=== PATIENT | female | born 1955 | race Two or more races ===

== ENCOUNTER 2024-04-28 07:08 | Inpatient (IN) | payer MEDICARE, OTHER ==
[~2024-04-28] VITALS: Ht 162.6 cm; Wt 70.3 kg
[2024-04-28] MEDS ORDERED: ACETAMINOPHEN 650 MG/SUPP.RECT RC ONE (07:26)
[2024-04-28] MEDS: VANCOMYCIN 1 GM in IV D5W 250 ML IV ONE (07:30)
[2024-04-28 07:37] LABS: BASOPHILS % (AUTO) 0.2 % (0.0-2.0); HEMATOCRIT 32 % (33-45); HEMOGLOBIN 10.3 g/dL (11.5-14.8); LYMPHOCYTES # (AUTO) 1.7 K/uL (0.8-4.8); LYMPHOCYTES % (AUTO) 26.9 % (20.0-44.0); MEAN CORPUSCULAR HEMOGLOBIN 25 PG (26.0-33.0); MEAN CORPUSCULAR HGB CONC 32 g/dl (31.0-36.0); MEAN CORPUSCULAR VOLUME 77 fL (82-100); MONOCYTES # (AUTO) 0.6 K/uL (0.1-1.30); MONOCYTES % (AUTO) 9.9 % (2.0-12.0); NEUTROPHILS # (AUTO) 4.1 K/uL (1.8-8.9); PLATELET COUNT (AUTO) 161 K/uL (150-450); RED BLOOD CELL COUNT(AUTO) 4.19 MIL/uL (4.0-5.2); RED CELL DISTRIBUTION WIDTH 18.2 % (11.5-15.0); WHITE BLOOD COUNT (AUTO) 6.5 K/uL (4.3-11.0)
[2024-04-28] MEDS: ACETAMINOPHEN 650 MG/SUPP.RECT RC ONE (07:43)
[2024-04-28] MEDS: CEFEPIME 1 GM in IV D5W 50 ML IV ONE (07:43)
[2024-04-28 07:49] LABS: INR 1.09 (0.91-1.10); PARTIAL THROMBOPLASTIN TIME 31.1 SEC (24.3-34.3); PROTHROMBIN TIME 11.5 SECS (9.2-11.1)
[2024-04-28 07:55] LABS: LACTIC ACID 1.3 mmol/L (0.4-2.0)
[2024-04-28 08:00] LABS: CALCIUM, SERUM 7.9 mg/dL (8.5-10.1); CARBON DIOXIDE 26 mmol/L (21-32); CHLORIDE 106 mmol/L (98-107); CREATININE 1.2 mg/dL (0.6-1.3); GLUCOSE 205 mg/dL (74-106); POTASSIUM 4.7 mmol/L (3.5-5.1); SODIUM SERUM 139 mmol/L (136-145); UREA NITROGEN, BLOOD 26 mg/dL (7-18)
[2024-04-28 08:04] LABS: ALANINE AMINOTRANSFERASE 8 U/L (12-78); ALBUMIN 1.5 g/dL (3.4-5.0); ALKALINE PHOSPHATASE 71 U/L (46-116); ASPARTATE AMINOTRANSFERASE 16 U/L (15-37); BILIRUBIN,DIRECT 0.1 mg/dL (0.0-0.2); BILIRUBIN,TOTAL 0.3 mg/dL (0.2-1.0); TOTAL PROTEIN, SERUM 6.2 g/dL (6.4-8.2)
[2024-04-28] MEDS: IV NS 0.9% 1,000 ML BAG IV ONE (08:09)
[2024-04-28] MEDS ORDERED: BUSP7.5T7 PO (09:22)
[2024-04-28] MEDS ORDERED: FOLI0.4T6 PO (09:22)
[2024-04-28] MEDS ORDERED: MAGN400O6 PO (09:22)
[2024-04-28] MEDS ORDERED: DIVA125C5 PO (09:22)
[2024-04-28] MEDS ORDERED: MAG30ORA PO (09:22)
[2024-04-28] MEDS ORDERED: FERR325T23 PO (09:22)
[2024-04-28] MEDS ORDERED: CLON0.5T4 PO (09:22)
[2024-04-28] MEDS ORDERED: NA P133E RC (09:22)
[2024-04-28] MEDS ORDERED: METF-442 PO (09:22)
[2024-04-28] MEDS ORDERED: AMIN30LI25 PO (09:22)
[2024-04-28] MEDS ORDERED: GLIP5TAB13 PO (09:22)
[2024-04-28] MEDS ORDERED: HYDR-4076 PO (09:22)
[2024-04-28] MEDS ORDERED: ACET325T53 PO (09:22)
[2024-04-28] MEDS ORDERED: MELA3TAB41 PO (09:22)
[2024-04-28] MEDS ORDERED: CYAN-51 PO (09:22)
[2024-04-28] MEDS ORDERED: CALC500T53 PO (09:22)
[2024-04-28] MEDS ORDERED: QUET25TA PO (09:22)
[2024-04-28] MEDS ORDERED: PIOG30TA10 PO (09:22)
[2024-04-28] MEDS ORDERED: DEXT38GE12 PO (09:23)
[2024-04-28] MEDS ORDERED: TRAZ-182 PO (09:23)
[2024-04-28] MEDS ORDERED: OLAN15TA3 PO (09:23)
[2024-04-28] MEDS ORDERED: GLUC1KIT IM (09:23)
[2024-04-28] MEDS ORDERED: ACET-73 PO (09:23)
[2024-04-28] MEDS ORDERED: OLAN7.5T3 PO (09:23)
[2024-04-28] MEDS ORDERED: TRAM50TA2 PO (09:23)
[2024-04-28] MEDS ORDERED: HONE44PA TP (09:27)
[2024-04-28] MEDS ORDERED: POVI37802 TP (09:27)
[2024-04-28 09:38] LABS: APPEARANCE,URINE SLIGHTLY CLOUDY (CLEAR); BILIRUBIN,URINE NEGATIVE (NEGATIVE); BLOOD, URINE TRACE-INTA Ery/uL (NEGATIVE); COLOR,URINE YELLOW (YELLOW); KETONES,URINE NEGATIVE (NEGATIVE); LEUKOCYTE ESTERASE ,URINE 1+ (NEGATIVE); NITRITE, URINE NEGATIVE (NEGATIVE); PROTEIN,URINE NEGATIVE (NEGATIVE); UGLUCOSE 1+ mg/dL (NEGATIVE); UROBILINOGEN,URINE 0.2 EU/dL (0.2)
[2024-04-28 09:57] LABS: ADD URINE CULTURE YES; BACTERIA,URINE Rare /HPF (None Seen); SQUAMOUS EPITHELIAL CELL,UR Few /HPF (None Seen); WBC,URINE 21-50 /HPF (0-3)
[2024-04-28] MEDS ORDERED: DEXTROSE 50%-WATER 50 ML DISP.SYRIN IV PRN (11:00)
[2024-04-28] MEDS ORDERED: GLUTOSE 15 G GEL..GM. PO SCH (11:00)
[2024-04-28] MEDS ORDERED: ONDANSETRON HCL/PF 4 MG/2 ML VIAL IVP PRN (11:00)
[2024-04-28] MEDS: BLOOD SUGAR DIAGNOSTIC 1 EACH STRIP IN SCH (11:43)
[2024-04-28] MEDS: IV NS 0.9% 1,000 ML IV PRN (11:43)
[2024-04-28] MEDS: CEFTRIAXONE 1 G in IV D5W 50 ML IV SCH (11:51)
[2024-04-28 12:00] VITALS: BP 140/75; TEMP 98.6; O2SAT 96
[2024-04-28] MEDS: DIVALPROEX SODIUM 125 MG CAP.SPRINK PO SCH (12:19)
[2024-04-28] MEDS: clonazePAM 0.5 MG TABLET PO SCH (12:19)
[2024-04-28] MEDS: busPIRone 5 MG TABLET PO SCH (12:19)
[2024-04-28] MEDS: PROSOURCE / PROSTAT (PYXIS) 30 ML UDC PO SCH (12:20)
[2024-04-28] MEDS: ENOXAPARIN SODIUM 40 MG/0.4 ML DISP.SYRIN SQ SCH (13:24)
[2024-04-28 16:00] VITALS: BP 119/54; TEMP 98.1; O2SAT 96
[2024-04-28] MEDS: CALCIUM CARBONATE (1250) 500 MG TABLET PO SCH (17:29)
[2024-04-28 20:00] VITALS: BP 128/69; TEMP 98.8; O2SAT 94; O2SAT 96
[2024-04-28] MEDS: INSULIN REGULAR, HUMAN 100 UNIT/ML 3 ML VIAL SQ PRN (21:07)
[2024-04-28] MEDS: OLANZAPINE 10 MG TABLET PO SCH (21:11)
[2024-04-29] VITALS (7 sets, daily range): BP systolic 109–151; BP diastolic 55–94; TEMP 98.1–99.3; O2SAT 94–99
[2024-04-29] MEDS: FOLIC ACID 1 MG TABLET PO SCH (08:24)
[2024-04-29] MEDS: CYANOCOBALAMIN 500 MCG TABLET PO SCH (08:24)
[2024-04-29] MEDS: OLANZAPINE 5 MG TABLET PO SCH (08:24)
[2024-04-29] MEDS: FERROUS SULFATE (325 MG) 325 MG/TAB TABLET PO SCH (08:25)
[2024-04-29 13:35] LABS: CALCIUM, SERUM 7.8 mg/dL (8.5-10.1); CREATININE 0.5 mg/dL (0.6-1.3); PHOSPHORUS 2.4 mg/dL (2.5-4.9); POTASSIUM 3.7 mmol/L (3.5-5.1)
[2024-04-29 13:37] LABS: BASOPHILS % (AUTO) 0.3 % (0.0-2.0); EOSINOPHILS % (AUTO) 0.2 % (0.0-6.0); HEMATOCRIT 30 % (33-45); HEMOGLOBIN 9.3 g/dL (11.5-14.8); LYMPHOCYTES # (AUTO) 1.7 K/uL (0.8-4.8); LYMPHOCYTES % (AUTO) 42.2 % (20.0-44.0); MEAN CORPUSCULAR HEMOGLOBIN 24 PG (26.0-33.0); MEAN CORPUSCULAR HGB CONC 31 g/dl (31.0-36.0); MEAN CORPUSCULAR VOLUME 78 fL (82-100); MONOCYTES # (AUTO) 0.4 K/uL (0.1-1.30); MONOCYTES % (AUTO) 8.7 % (2.0-12.0); NEUTROPHILS % (AUTO) 48.6 % (43.0-81.0); PLATELET COUNT (AUTO) 124 K/uL (150-450); RED BLOOD CELL COUNT(AUTO) 3.82 MIL/uL (4.0-5.2); RED CELL DISTRIBUTION WIDTH 17.6 % (11.5-15.0); WHITE BLOOD COUNT (AUTO) 4.1 K/uL (4.3-11.0)
[2024-04-29] MEDS: K PHOS NEUTRAL 250 MG TABLET PO ONE (16:25)
[2024-04-30] VITALS: BP 152/70; TEMP 98.3; O2SAT 94
[2024-04-30 04:00] VITALS: BP 138/90; TEMP 98.1; O2SAT 95
[2024-04-30 06:51] LABS: CALCIUM, SERUM 7.9 mg/dL (8.5-10.1); CREATININE 0.5 mg/dL (0.6-1.3); PHOSPHORUS 2.5 mg/dL (2.5-4.9); POTASSIUM 3.8 mmol/L (3.5-5.1)
[2024-04-30 08:00] VITALS: BP 137/83; TEMP 99.1; O2SAT 91; O2SAT 95
[2024-04-30 16:00] VITALS: BP 135/84; TEMP 98.1; O2SAT 94
[2024-04-30] MEDS: GLUCERNA SHAKE 237 ML CAN PO SCH (16:53)
[2024-04-30 18:00] VITALS: BP 135/84; TEMP 98.1; O2SAT 90
[2024-04-30 20:00] VITALS: BP 158/75; TEMP 100.4; O2SAT 95
[2024-04-30] MEDS: ACETAMINOPHEN 325 MG TABLET PO PRN (21:08)
[2024-05-01 04:00] VITALS: BP 133/79; TEMP 98.4; O2SAT 95
[2024-05-01 06:59] LABS: CALCIUM, SERUM 8.3 mg/dL (8.5-10.1); CREATININE 0.5 mg/dL (0.6-1.3); POTASSIUM 3.2 mmol/L (3.5-5.1)
[2024-05-01 08:00] VITALS: BP 141/82; TEMP 97.3; O2SAT 93
[2024-05-01 09:39] LABS: IRON, SERUM 19 ug/dl (50-175); TOTAL IRON BINDING CAPACITY 185 ug/dl (250-450)
[2024-05-01 09:53] LABS: FERRITIN 192 ng/mL (8-388)
[2024-05-01 11:17] LABS: ABG BASE EXCESS 1.3 mmol/L (-2.0-2.0); ABG PCO2 36.6 mmHg (35.0-45.0); ABG PH 7.454 (7.350-7.450); ABG TOTAL HEMOGLOBIN 11.2 G/dL (12.0-16.0); COHb 0.3 % (0.5-1.5); MetHb 0.1 % (0.0-1.5); O2Hb 90.6 % (94.0-97.0); SITE, ABG Right Radial; VENT MODE, BG 2LPM NC
[2024-05-01] MEDS: POTASSIUM CHLORIDE 20 MEQ TAB.PRT.SR PO ONE (11:24)
[2024-05-01 16:00] VITALS: BP 154/89; TEMP 99.1; O2SAT 95
[2024-05-01 19:58] VITALS: O2SAT 96
[2024-05-01 20:00] VITALS: BP 162/80; TEMP 98.6; O2SAT 98
[2024-05-01] MEDS: POTASSIUM CL. PREMIX PERIPHER. 50 ML IV ONE (22:43)
[2024-05-01] MEDS: POTASSIUM CL. PREMIX PERIPHER. 50 ML IV SCH (23:48)
[2024-05-02 04:00] VITALS: BP 161/67; TEMP 98.3; O2SAT 94
[2024-05-02 07:20] LABS: BASOPHILS % (AUTO) 0.2 % (0.0-2.0); EOSINOPHILS % (AUTO) 0.1 % (0.0-6.0); HEMATOCRIT 30 % (33-45); HEMOGLOBIN 9.5 g/dL (11.5-14.8); LYMPHOCYTES # (AUTO) 0.9 K/uL (0.8-4.8); LYMPHOCYTES % (AUTO) 32.5 % (20.0-44.0); MEAN CORPUSCULAR HEMOGLOBIN 24 PG (26.0-33.0); MEAN CORPUSCULAR HGB CONC 32 g/dl (31.0-36.0); MEAN CORPUSCULAR VOLUME 76 fL (82-100); MONOCYTES # (AUTO) 0.2 K/uL (0.1-1.30); MONOCYTES % (AUTO) 9.1 % (2.0-12.0); NEUTROPHILS # (AUTO) 1.5 K/uL (1.8-8.9); NEUTROPHILS % (AUTO) 58.1 % (43.0-81.0); PLATELET COUNT (AUTO) 118 K/uL (150-450); RED BLOOD CELL COUNT(AUTO) 3.94 MIL/uL (4.0-5.2); RED CELL DISTRIBUTION WIDTH 17.4 % (11.5-15.0); WHITE BLOOD COUNT (AUTO) 2.7 K/uL (4.3-11.0)
[2024-05-02 07:50] LABS: CREATININE 0.6 mg/dL (0.6-1.3); MAGNESIUM 1.6 mg/dL (1.8-2.4); PHOSPHORUS 2.4 mg/dL (2.5-4.9); POTASSIUM 3.5 mmol/L (3.5-5.1)
[2024-05-02 08:00] VITALS: BP 163/75; TEMP 100.2; O2SAT 94
[2024-05-02] MEDS ORDERED: Magnesium 1 GM/2 ML VIAL IV ONE (09:00)
[2024-05-02] MEDS ORDERED: hydrALAZINE HCL IV 20 MG VIAL IV PRN (09:00)
[2024-05-02] MEDS ORDERED: ACETAMINOPHEN 650 MG/SUPP.RECT RC PRN (09:00)
[2024-05-02] MEDS: POTASSIUM PHOSPHATE MM 15 MMOL in IV NS 0.9% 250 ML IV SCH (09:32)
[2024-05-02] MEDS: Magnesium 1GM/D5W 100ML PREMIX 100 ML IV ONE (10:17)
[2024-05-02] MEDS: SOD FERRIC GLUC 125 MG in IV NS 0.9% 100 ML IV SCH (14:06)
[2024-05-02 15:21] VITALS: O2SAT 94
[2024-05-02] MEDS ORDERED: K PHOS NEUTRAL 250 MG TABLET PO ONE (15:30)
[2024-05-02 16:00] VITALS: BP 144/63; TEMP 99.2; O2SAT 91
[2024-05-02 20:00] VITALS: BP 138/59; TEMP 98.4; O2SAT 94
[2024-05-03] VITALS (8 sets, daily range): BP systolic 118–157; BP diastolic 60–75; TEMP 97.7–98.8; O2SAT 94–97
[2024-05-03 07:31] LABS: CALCIUM, SERUM 7.5 mg/dL (8.5-10.1); CREATININE 0.4 mg/dL (0.6-1.3); POTASSIUM 3.2 mmol/L (3.5-5.1)
[2024-05-03] MEDS: POTASSIUM CHLORIDE 20 MEQ TAB.PRT.SR PO SCH (11:00)
[2024-05-03] MEDS: POTASSIUM CHLORIDE 20 MEQ POWDER PACKET PO SCH (12:30)
[2024-05-04] VITALS: BP 135/53; TEMP 98.3; O2SAT 93
[2024-05-04 04:00] VITALS: BP 147/81; TEMP 98.5; O2SAT 93
[2024-05-04 07:04] LABS: BASOPHILS % (AUTO) 0.2 % (0.0-2.0); EOSINOPHILS # (AUTO) 0.1 K/uL (0.0-0.7); EOSINOPHILS % (AUTO) 1.5 % (0.0-6.0); HEMATOCRIT 33 % (33-45); HEMOGLOBIN 10.6 g/dL (11.5-14.8); LYMPHOCYTES # (AUTO) 1.5 K/uL (0.8-4.8); LYMPHOCYTES % (AUTO) 40.8 % (20.0-44.0); MEAN CORPUSCULAR HEMOGLOBIN 24 PG (26.0-33.0); MEAN CORPUSCULAR HGB CONC 32 g/dl (31.0-36.0); MEAN CORPUSCULAR VOLUME 75 fL (82-100); MONOCYTES # (AUTO) 0.2 K/uL (0.1-1.30); MONOCYTES % (AUTO) 6.8 % (2.0-12.0); NEUTROPHILS # (AUTO) 1.8 K/uL (1.8-8.9); NEUTROPHILS % (AUTO) 50.7 % (43.0-81.0); PLATELET COUNT (AUTO) 139 K/uL (150-450); RED BLOOD CELL COUNT(AUTO) 4.33 MIL/uL (4.0-5.2); RED CELL DISTRIBUTION WIDTH 17.7 % (11.5-15.0); WHITE BLOOD COUNT (AUTO) 3.6 K/uL (4.3-11.0)
[2024-05-04 07:45] LABS: CALCIUM, SERUM 8.9 mg/dL (8.5-10.1); CREATININE 0.4 mg/dL (0.6-1.3); MAGNESIUM 1.9 mg/dL (1.8-2.4); POTASSIUM 3.7 mmol/L (3.5-5.1)
[2024-05-04 08:20] VITALS: BP 106/56; TEMP 98.6; O2SAT 98
[2024-05-04 09:30] VITALS: O2SAT 98
[2024-05-04 16:34] VITALS: BP 148/63; TEMP 98.3; O2SAT 94
[2024-05-04 20:00] VITALS: BP 130/60; TEMP 98.5; O2SAT 94
[2024-05-05] VITALS (7 sets, daily range): BP systolic 135–157; BP diastolic 64–81; TEMP 97.2–98.3; O2SAT 93–98
[2024-05-05 09:36] LABS: BASOPHILS % (AUTO) 0.3 % (0.0-2.0); EOSINOPHILS % (AUTO) 0.7 % (0.0-6.0); HEMATOCRIT 34 % (33-45); HEMOGLOBIN 10.8 g/dL (11.5-14.8); LYMPHOCYTES # (AUTO) 1.3 K/uL (0.8-4.8); LYMPHOCYTES % (AUTO) 27.6 % (20.0-44.0); MEAN CORPUSCULAR HEMOGLOBIN 24 PG (26.0-33.0); MEAN CORPUSCULAR HGB CONC 32 g/dl (31.0-36.0); MEAN CORPUSCULAR VOLUME 76 fL (82-100); MONOCYTES # (AUTO) 0.4 K/uL (0.1-1.30); MONOCYTES % (AUTO) 7.7 % (2.0-12.0); NEUTROPHILS # (AUTO) 2.9 K/uL (1.8-8.9); NEUTROPHILS % (AUTO) 63.7 % (43.0-81.0); PLATELET COUNT (AUTO) 163 K/uL (150-450); RED BLOOD CELL COUNT(AUTO) 4.45 MIL/uL (4.0-5.2); RED CELL DISTRIBUTION WIDTH 17.8 % (11.5-15.0); WHITE BLOOD COUNT (AUTO) 4.6 K/uL (4.3-11.0)
[2024-05-05 09:59] LABS: CALCIUM, SERUM 9.1 mg/dL (8.5-10.1); CREATININE 0.5 mg/dL (0.6-1.3); POTASSIUM 4.4 mmol/L (3.5-5.1)
[2024-05-06 04:00] VITALS: BP 142/83; TEMP 98.5; O2SAT 96
[2024-05-06 07:53] LABS: BASOPHILS % (AUTO) 0.2 % (0.0-2.0); EOSINOPHILS % (AUTO) 0.1 % (0.0-6.0); HEMATOCRIT 36 % (33-45); HEMOGLOBIN 11.3 g/dL (11.5-14.8); LYMPHOCYTES % (AUTO) 18.4 % (20.0-44.0); MEAN CORPUSCULAR HEMOGLOBIN 24 PG (26.0-33.0); MEAN CORPUSCULAR HGB CONC 32 g/dl (31.0-36.0); MEAN CORPUSCULAR VOLUME 76 fL (82-100); MONOCYTES # (AUTO) 0.6 K/uL (0.1-1.30); NEUTROPHILS % (AUTO) 71.3 % (43.0-81.0); PLATELET COUNT (AUTO) 179 K/uL (150-450); RED BLOOD CELL COUNT(AUTO) 4.73 MIL/uL (4.0-5.2); RED CELL DISTRIBUTION WIDTH 18.3 % (11.5-15.0); WHITE BLOOD COUNT (AUTO) 5.7 K/uL (4.3-11.0)
[2024-05-06 08:00] VITALS: BP 140/83; TEMP 98.8; O2SAT 96
[2024-05-06] MEDS: FUROSEMIDE 40 MG/4 ML VIAL IV STA (13:46)
[2024-05-06 14:02] LABS: ABG BASE EXCESS -2.6 mmol/L (-2.0-2.0); ABG PCO2 30.1 mmHg (35.0-45.0); ABG PO2 70.6 mmHg (75.0-100.0); ABG TOTAL HEMOGLOBIN 12.2 G/dL (12.0-16.0); AaDO2 468.2 mmHg; COHb 0.3 % (0.5-1.5); O2Hb 92.7 % (94.0-97.0); SITE, ABG Right Radial; VENT MODE, BG NRB MASK
[2024-05-06 16:00] VITALS: BP 149/84; TEMP 99; O2SAT 95
[2024-05-06 19:57] VITALS: O2SAT 95
[2024-05-06 20:00] VITALS: BP 146/78; TEMP 98.1; O2SAT 95
[2024-05-07] VITALS (7 sets, daily range): BP systolic 121–154; BP diastolic 78–79; TEMP 98.3–99.5; O2SAT 95–99
[2024-05-07 07:22] LABS: BASOPHILS % (AUTO) 0.2 % (0.0-2.0); HEMATOCRIT 32 % (33-45); HEMOGLOBIN 10.2 g/dL (11.5-14.8); LYMPHOCYTES # (AUTO) 0.9 K/uL (0.8-4.8); LYMPHOCYTES % (AUTO) 18.7 % (20.0-44.0); MEAN CORPUSCULAR HEMOGLOBIN 25 PG (26.0-33.0); MEAN CORPUSCULAR HGB CONC 32 g/dl (31.0-36.0); MEAN CORPUSCULAR VOLUME 77 fL (82-100); MONOCYTES # (AUTO) 0.5 K/uL (0.1-1.30); MONOCYTES % (AUTO) 9.8 % (2.0-12.0); NEUTROPHILS # (AUTO) 3.6 K/uL (1.8-8.9); NEUTROPHILS % (AUTO) 71.3 % (43.0-81.0); PLATELET COUNT (AUTO) 195 K/uL (150-450); RED BLOOD CELL COUNT(AUTO) 4.16 MIL/uL (4.0-5.2); RED CELL DISTRIBUTION WIDTH 19.3 % (11.5-15.0)
[2024-05-07 07:35] LABS: CALCIUM, SERUM 8.8 mg/dL (8.5-10.1); CREATININE 0.7 mg/dL (0.6-1.3); POTASSIUM 3.6 mmol/L (3.5-5.1)
[2024-05-07] MEDS ORDERED: ALBUTEROL FS 2.5 MG/0.5 ML VIAL.NEB NEB PRN (08:30)
[2024-05-07] MEDS: ACETAMINOPHEN 650 MG/SUPP.RECT RC PRN (08:33)
[2024-05-07] MEDS: FUROSEMIDE 20 MG/2 ML VIAL IV SCH (08:33)
[2024-05-07] MEDS: IPRATROPIUM NEB FS 0.5 MG/2.5 ML AMPUL.NEB NEB SCH (13:26)
[2024-05-07] MEDS: ALBUTEROL FS 2.5 MG/3 ML VIAL.NEB NEB SCH (13:26)
[2024-05-08] VITALS (12 sets, daily range): BP systolic 133–135; BP diastolic 66–68; O2SAT 90–99
[2024-05-08 06:41] LABS: BASOPHILS % (AUTO) 0.3 % (0.0-2.0); HEMATOCRIT 33 % (33-45); HEMOGLOBIN 10.4 g/dL (11.5-14.8); LYMPHOCYTES # (AUTO) 0.8 K/uL (0.8-4.8); LYMPHOCYTES % (AUTO) 16.2 % (20.0-44.0); MEAN CORPUSCULAR HEMOGLOBIN 24 PG (26.0-33.0); MEAN CORPUSCULAR HGB CONC 32 g/dl (31.0-36.0); MEAN CORPUSCULAR VOLUME 77 fL (82-100); MONOCYTES # (AUTO) 0.4 K/uL (0.1-1.30); MONOCYTES % (AUTO) 7.6 % (2.0-12.0); NEUTROPHILS # (AUTO) 3.6 K/uL (1.8-8.9); NEUTROPHILS % (AUTO) 75.9 % (43.0-81.0); PLATELET COUNT (AUTO) 181 K/uL (150-450); RED BLOOD CELL COUNT(AUTO) 4.28 MIL/uL (4.0-5.2); WHITE BLOOD COUNT (AUTO) 4.7 K/uL (4.3-11.0)
[2024-05-08 07:02] LABS: CALCIUM, SERUM 8.9 mg/dL (8.5-10.1); CREATININE 0.6 mg/dL (0.6-1.3); MAGNESIUM 1.8 mg/dL (1.8-2.4); PHOSPHORUS 2.9 mg/dL (2.5-4.9); POTASSIUM 3.7 mmol/L (3.5-5.1)
[2024-05-08 19:49] LABS: HEMATOCRIT 35 % (33-45); HEMOGLOBIN 10.9 g/dL (11.5-14.8); MEAN CORPUSCULAR HEMOGLOBIN 24 PG (26.0-33.0); MEAN CORPUSCULAR HGB CONC 31 g/dl (31.0-36.0); MEAN CORPUSCULAR VOLUME 77 fL (82-100); PLATELET COUNT (AUTO) 186 K/uL (150-450); RED BLOOD CELL COUNT(AUTO) 4.52 MIL/uL (4.0-5.2); RED CELL DISTRIBUTION WIDTH 18.7 % (11.5-15.0); WHITE BLOOD COUNT (AUTO) 5.6 K/uL (4.3-11.0)
[2024-05-08] MEDS: METOCLOPRAMIDE HCL 10 MG/2 ML VIAL IV SCH (20:13)
[2024-05-08] MEDS: PANTOPRAZOLE 40 MG VIAL IV SCH (22:43)
[2024-05-09] VITALS (57 sets, daily range): BP systolic 114–156; BP diastolic 55–78; TEMP 97.1–103.1; O2SAT 82–95
[2024-05-09 01:15] LABS: HEMATOCRIT 34 % (33-45); HEMOGLOBIN 10.6 g/dL (11.5-14.8); MEAN CORPUSCULAR HEMOGLOBIN 24 PG (26.0-33.0); MEAN CORPUSCULAR HGB CONC 31 g/dl (31.0-36.0); MEAN CORPUSCULAR VOLUME 78 fL (82-100); PLATELET COUNT (AUTO) 173 K/uL (150-450); RED BLOOD CELL COUNT(AUTO) 4.41 MIL/uL (4.0-5.2); WHITE BLOOD COUNT (AUTO) 6.6 K/uL (4.3-11.0)
[2024-05-09] MEDS ORDERED: IOHEXOL-300 100 ML VIAL IV ONE (02:38)
[2024-05-09] MEDS ORDERED: IV NS 0.9% 250 ML IV ONE (02:38)
[2024-05-09] MEDS ORDERED: CT SWABBABLE VALVE TRANS SET 1 EA INFUS.SET MC ONE (02:38)
[2024-05-09 04:10] LABS: BASOPHILS % (AUTO) 0.1 % (0.0-2.0); HEMATOCRIT 35 % (33-45); HEMOGLOBIN 10.9 g/dL (11.5-14.8); LYMPHOCYTES # (AUTO) 0.6 K/uL (0.8-4.8); LYMPHOCYTES % (AUTO) 9.6 % (20.0-44.0); MEAN CORPUSCULAR HEMOGLOBIN 24 PG (26.0-33.0); MEAN CORPUSCULAR HGB CONC 31 g/dl (31.0-36.0); MEAN CORPUSCULAR VOLUME 78 fL (82-100); MONOCYTES # (AUTO) 0.4 K/uL (0.1-1.30); MONOCYTES % (AUTO) 6.6 % (2.0-12.0); NEUTROPHILS % (AUTO) 83.7 % (43.0-81.0); PLATELET COUNT (AUTO) 179 K/uL (150-450); RED BLOOD CELL COUNT(AUTO) 4.53 MIL/uL (4.0-5.2); RED CELL DISTRIBUTION WIDTH 19.5 % (11.5-15.0)
[2024-05-09 04:42] LABS: ALBUMIN 1.6 g/dL (3.4-5.0); BILIRUBIN,TOTAL 0.5 mg/dL (0.2-1.0); CALCIUM, SERUM 8.9 mg/dL (8.5-10.1); PHOSPHORUS 3.1 mg/dL (2.5-4.9); POTASSIUM 3.5 mmol/L (3.5-5.1)
[2024-05-09] MEDS: INSULIN REGULAR, HUMAN 100 UNIT/ML 10 ML VIAL SQ ONE (05:34)
[2024-05-09] MEDS: IV D5/0.45 NACL 1,000 ML IV PRN (05:35)
[2024-05-09] MEDS ORDERED: GLUCERNA 1.2 1,000 ML BOTTLE NG PRN (08:00)
[2024-05-09 11:02] LABS: ABG BASE EXCESS 6.1 mmol/L (-2.0-2.0); ABG OXYGEN SATURATION 88.7 % (92.0-98.5); ABG PCO2 42.7 mmHg (35.0-45.0); ABG PO2 59.8 mmHg (75.0-100.0); ABG TOTAL HEMOGLOBIN 11.7 G/dL (12.0-16.0); AaDO2 610.5 mmHg; COHb 0.4 % (0.5-1.5); O2Hb 88.3 % (94.0-97.0); SITE, ABG Left Radial; VENT MODE, BG HiFlow 40L 100% +NRB
[2024-05-10] VITALS (53 sets, daily range): BP systolic 79–148; BP diastolic 46–88; TEMP 98–100.8; O2SAT 60–95
[2024-05-10 04:17] LABS: BASOPHILS % (AUTO) 0.1 % (0.0-2.0); HEMATOCRIT 38 % (33-45); HEMOGLOBIN 11.8 g/dL (11.5-14.8); LYMPHOCYTES # (AUTO) 0.8 K/uL (0.8-4.8); LYMPHOCYTES % (AUTO) 9.2 % (20.0-44.0); MEAN CORPUSCULAR HEMOGLOBIN 24 PG (26.0-33.0); MEAN CORPUSCULAR HGB CONC 31 g/dl (31.0-36.0); MEAN CORPUSCULAR VOLUME 78 fL (82-100); MONOCYTES # (AUTO) 0.4 K/uL (0.1-1.30); MONOCYTES % (AUTO) 4.8 % (2.0-12.0); NEUTROPHILS % (AUTO) 85.9 % (43.0-81.0); PLATELET COUNT (AUTO) 171 K/uL (150-450); RED BLOOD CELL COUNT(AUTO) 4.87 MIL/uL (4.0-5.2); RED CELL DISTRIBUTION WIDTH 18.7 % (11.5-15.0); WHITE BLOOD COUNT (AUTO) 8.2 K/uL (4.3-11.0)
[2024-05-10] MEDS ORDERED: MORPHINE SULFATE PF DRIP 100 MG in IV D5W 96 ML IV PRN ×2 (18:30→19:00)
[2024-05-10] MEDS: MORPHINE SULFATE PF DRIP 250 MG in IV D5W 240 ML IV PRN (20:21)
[2024-05-10] MEDS: SCOPOLAMINE PATCH 1 MG/72HR TD SCH (20:22)
[2024-05-10] MEDS: LORAZEPAM INJ 2 MG/ML VIAL IV PRN (20:37)
[2024-05-11] VITALS: BP 70/46; TEMP 101.6; TEMP 97; O2SAT 61
[2024-05-11 01:00] VITALS: BP 64/42; O2SAT 66
[2024-05-11 02:00] VITALS: BP 67/45; O2SAT 50
[2024-05-11 03:00] VITALS: BP 66/43; O2SAT 63
[2024-05-11 04:00] VITALS: BP 65/42; TEMP 100.2; O2SAT 61
[2024-05-11 05:00] VITALS: BP 61/43; O2SAT 61
== END 2024-05-11 06:13 | DRG 871 ==
LOC: ER 07:34 → TELE1 08:36 → MEDSG1 04-30 10:31 → TELE1 05-02 08:53 → MEDSG1 05-04 09:54 → TELE1 05-06 14:29 → TELE-TD 05-06 17:07 → TELE1 05-08 10:08 → ICU 05-08 20:57
PROVIDERS: ADMIT Nurse Practitioner Acute Care
PROC: 0B9N30Z Drainage of Right Pleura with Drainage Device, Percutaneous Approach (ICD-10-PCS; principal; 2024-05-07)
DX: A41.9 Sepsis, unspecified organism (principal); E43 Unspecified severe protein-calorie malnutrition; G93.41 Metabolic encephalopathy; J96.01 Acute respiratory failure with hypoxia; N17.0 Acute kidney failure with tubular necrosis; J69.0 Pneumonitis due to inhalation of food and vomit; Z51.5 Encounter for palliative care; N39.0 Urinary tract infection, site not specified; J93.9 Pneumothorax, unspecified; D68.69 Other thrombophilia; E87.0 Hyperosmolality and hypernatremia; D50.9 Iron deficiency anemia, unspecified; E11.40 Type 2 diabetes mellitus with diabetic neuropathy, unspecified; E11.621 Type 2 diabetes mellitus with foot ulcer; E11.65 Type 2 diabetes mellitus with hyperglycemia; E66.01 Morbid (severe) obesity due to excess calories; E88.09 Other disorders of plasma-protein metabolism, not elsewhere classified; F03.90 Unspecified dementia, unspecified severity, without behavioral disturbance, psychotic disturbance, mood disturbance, and anxiety; R13.10 Dysphagia, unspecified; Z66 Do not resuscitate; L89.620 Pressure ulcer of left heel, unstageable; Z79.84 Long term (current) use of oral hypoglycemic drugs; S81.811A Laceration without foreign body, right lower leg, initial encounter; X58.XXXA Exposure to other specified factors, initial encounter; Y93.9 Activity, unspecified; Y92.129 Unspecified place in nursing home as the place of occurrence of the external cause; L97.519 Non-pressure chronic ulcer of other part of right foot with unspecified severity; L97.529 Non-pressure chronic ulcer of other part of left foot with unspecified severity; Z79.4 Long term (current) use of insulin; I11.0 Hypertensive heart disease with heart failure; I50.9 Heart failure, unspecified; Z68.26 Body mass index [BMI] 26.0-26.9, adult
CPT/HCPCS: 36415; 36600; 71045-TC; 80048-TC; 80053-TC; 80061-TC; 80076-TC; 80164-TC; 81001; 82728-TC; 82803-TC; 82962-TC; 83540-TC; 83605-TC; 83735-TC; 83880; 84100-TC; 84484-TC; 85025-TC; 85027-TC; 85730-TC; 87040-TC; 87086-TC; 92526; 92611-TC; 93307-TC; 94760-TC; 94762-TC; 94799-TC; A4223; G0378; J0360; J0692; J0696; J1650; J1815; J1940; J2060; J2274; J2470; J2765; J2916; J3370; J3475; J3480; J3490; J7030; J7040; J7050; J7060; Q9967